=== PATIENT | female | born 2000 | race African-American/Black ===

== ENCOUNTER 2024-03-01 17:19 | Emergency (ER) | payer MEDICAID ==
[~2024-03-01] VITALS: Ht 157.5 cm; Wt 47.0 kg
[2024-03-01 17:27] VITALS: BP 97/56; PULSE 72; TEMP 97.1; O2SAT 98
[2024-03-01] MEDS: ACETAMINOPHEN 325MG TABLET PO ONE (20:00)
[2024-03-01 21:07] LABS: BASOPHILS % 0.4 % (0.0-2.0); EOSINOPHILS % 0.4 % (0.0-5.0); HEMATOCRIT. 39.2 % (36.0-48.0); LYMPHOCYTES % 29.9 % (20.0-50.0); MEAN CORPUSCULAR HEMOGLOBIN 32.4 pg (28.0-32.0); MEAN CORPUSCULAR HGB CONC 33.2 g/dL (31.0-37.0); MEAN CORPUSCULAR VOLUME 97.6 fL (81.0-99.0); MEAN PLATELET VOLUME 8.3 fl (7.4-10.4); MONOCYTES % 5.3 % (2.0-8.0); PLATELET 176 x1000/uL (130-400); RED BLOOD CELL COUNT 4.01 mill/uL (4.2-5.4); RED CELL DISTRIBUTION WIDTH 13.3 % (11.6-14.6); WHITE BLOOD COUNT 8.3 x1000/uL (4.5-11.0)
[2024-03-01 21:12] LABS: CHLORIDE 108 mEq/L (98-107); POTASSIUM 3.9 mEq/L (3.5-5.1); SODIUM 138 mEq/L (136-145)
[2024-03-01 21:13] LABS: CALCIUM 9.6 mg/dL (8.7-10.4); CARBON DIOXIDE 23 mEq/L (21-32)
[2024-03-01 21:18] LABS: CREATININE 0.8 mg/dL (0.6-1.0); GLUCOSE 74 mg/dL (70-105); UREA NITROGEN BLOOD 5 mg/dL (9-23)
[2024-03-01 21:27] LABS: HCG SCREEN NEGATIVE
[2024-03-01] MEDS ORDERED: TOPUD PO (21:35)
[2024-03-01 21:45] VITALS: RESP 16
== END 2024-03-01 21:45 | disposition home or self-care (01) ==
LOC: ER 17:37
DX: R10.32 Left lower quadrant pain (principal)
CPT/HCPCS: 36415; 71045; 80048; 84703; 85025; 99284